=== PATIENT | male | born 1955 ===

== ENCOUNTER 2019-12-26 20:35 | Emergency (ER) | payer BC ==
[2019-12-26 20:56] VITALS: BP 140/81
[2019-12-26] MEDS ORDERED: Benzonatate CAP* 100 MG PO ONE (21:43)
[2019-12-26] MEDS ORDERED: Amoxicillin/Clavulanate TAB* 875 MG PO ONE (21:43)
[2019-12-26] MEDS ORDERED: Albuterol HFA INHALER* 8 gm MDI INH ONE (21:43)
--- NOTE | 2019-12-26 21:50 | UC ---
Respiratory Complaint HPI - HPI Summary HPI Summary: 64-year-old male presents with 2-3 week history of persistent occasionally productive cough for white sputum. Associated with some chest discomfort with cough, mild shortness of breath, and low grade fever as high as 99 F. States he has been having a cough on and off since last August. He has been through 2 courses of antibiotics with the most recent being a course of azithromycin in September 2019. Denies nasal congestion, postnasal drip, ear pain, sore throat, or wheezing. - History of Current Complaint Chief Complaint: UCRespiratory Stated Complaint: COUGH Time Seen by Provider: 12/26/19 21:38 Hx Obtained From: Patient Pain Intensity: 8 - Allergies/Home Medications Allergies/Adverse Reactions: Allergies Allergy/AdvReac Type Severity Reaction Status Date / Time No Known Allergies Allergy Verified 12/26/19 21:48 Home Medications: Home Medications Levothyroxine TAB* [Synthroid 88 MCG TAB*] 88 mcg PO DAILY 12/26/19 [History Confirmed 12/26/19] Rosuvastatin (NF) [Crestor (NF)] 5 g PO DAILY 12/26/19 [History Confirmed ] metFORMIN* [Glucophage 1000 MG TAB *] 1,000 mg PO BID 12/26/19 [History Confirmed 12/26/19] PMH/Surg Hx/FS Hx/Imm Hx Previously Healthy: Yes Endocrine History: Diabetes, Thyroid Disease, Dyslipidemia - Surgical History Surgical History: None - Family History Known Family History: Positive: Non-Contributory - Social History Occupation: Retired Lives: With Family Alcohol Use: Weekly Substance Use Type: None Smoking Status (MU): Never Smoked Tobacco Review of Systems All Other Systems Reviewed And Are Negative: Yes Constitutional: Positive: Fever Eyes: Negative: Drainage, Eye Redness ENT: Negative: Sore Throat, Ear Ache, Nasal Discharge, Sinus Congestion, Sinus Pain/Tenderness Respiratory: Positive: Shortness Of Breath, Cough Cardiovascular: Negative: Palpitations Gastrointestinal: Negative: Abdominal Pain, Vomiting, Diarrhea, Nausea Genitourinary: Positive: Negative Musculoskeletal: Positive: Negative Neurological/Mental Status: Positive: Negative Is Patient Immunocompromised?: No Physical Exam - Summary Physical Exam Summary: GENERAL APPEARANCE: Alert and cooperative obese adult male who appears to be in no acute distress. EYES: Conjunctiva clear. No drainage. EARS: External auditory canals and tympanic membranes clear, hearing grossly intact. NOSE: No nasal congestion or discharge. THROAT: Pharynx normal No tonsilar inflammation, swelling, exudate, or lesions. Uvula midline. NECK: Neck supple, non-tender without lymphadenopathy. CARDIAC: Normal S1 and S2. No S3, S4 or murmurs. Rhythm is regular. There is no peripheral edema, cyanosis or pallor. Extremities are warm and well perfused. Capillary refill is less than 2 seconds. Peripheral pulses intact. LUNGS: Clear to auscultation without rales, rhonchi, wheezing or diminished breath sounds. Dry, non-productive cough. ABDOMEN: Positive bowel sounds. Soft, nondistended, nontender. No guarding or rebound. No masses or hepatosplenomegally. MUSKULOSKELETAL: ROM intact to all extremities. No joint erythema or tenderness. Normal muscular development. Normal gait. SKIN: Skin normal color, texture and turgor with no lesions or eruptions. Triage Information Reviewed: Yes Vital Signs: Initial Vital Signs Temp 98.6 F 12/26/19 20:50 Pulse 92 12/26/19 20:50 Resp 20 12/26/19 20:50 BP 140/81 12/26/19 20:50 Pulse Ox 96 12/26/19 20:50 Vital Signs Reviewed: Yes Respiratory Course/Dx - Course Course Of Treatment: 64-year-old male presents with 2-3 week history of persistent occasionally productive cough for white sputum. Associated with some chest discomfort with cough, mild shortness of breath, and low grade fever as high as 99 F. States he has been having a cough on and off since last August. He has been through 2 courses of antibiotics with the most recent being a course of azithromycin in September 2019. Denies nasal congestion, postnasal drip, ear pain, sore throat, or wheezing. Afebrile. Hypertensive otherwise vital signs stable. Patient had no nasal congestion or discharge, normal TMs, no pharyngeal erythema, no cervical lymphadenopathy, clear bilateral breath sounds, a dry nonproductive cough, and otherwise unremarkable exam. Discussed with the patient that his history and exam were consistent with an acute bronchitis and considering the duration of his symptoms will start him on Augmentin 875 mg twice a day 10 days. He was given the first dose in the clinic. He was also provided with an albuterol inhaler to use 2 puffs every 4-6 hours as needed for shortness of breath, wheezing, or coughing fits as well as Tessalon Perles 1 capsule every 8 hours as needed for cough. He was given a dose of the Tessalon in the clinic as well. He is to follow-up with his primary care provider in one week if symptoms are not improving. Anticipatory guidance and warning symptoms are reviewed with the patient. Verbalizes understanding and agrees with plan of care. - Differential Dx/Diagnosis Provider Diagnosis: Acute bronchitis Discharge ED - Sign-Out/Discharge Documenting (check all that apply): Patient Departure All imaging exams completed and their final reports reviewed: No Studies - Discharge Plan Condition: Stable Disposition: HOME Prescriptions: Amoxicillin/Clavulanate TAB* [Augmentin TAB 875*] 875 mg PO BID #20 tab Benzonatate CAP* [Tessalon 100 MG CAP*] 100 mg PO TID PRN #21 cap PRN Reason: Cough Patient Education Materials: How to Use a Metered-Dose Inhaler (ED), Acute Bronchitis (ED) Referrals: No Primary Care Phys,NOPCP [Primary Care Provider] - Additional Instructions: Your history and exam are consistent with acute bronchitis. Considering the duration of your symptoms we will treat you with a course of antibiotics. Start Augmentin 875 mg 1 tablet twice daily for 10 days. Take with food to avoid upset stomach. Be sure to complete the entire course even if feeling better. Even the first dose in the clinic tonight. Use the albuterol inhaler 2 puffs every 4-6 hours as needed for shortness of breath, wheezing, or coughing fits. Take Tessalon Perles 1 cap every 8 hours as needed for cough. You're given a dose of this in the clinic tonight. Be aware that the cough with bronchitis may persist for 2-3 weeks even after treatment. Get plenty of rest. Drink plenty of fluids. Run a cool mist humidifer in your room at night. Take over the counter acetaminophen (Tylenol) or ibuprofen (Advil, Motrin) according to directions as needed for pain or fever. Follow up with your primary care provider in 7 days if symptoms do not improve. Seek immediate medical attention in the emergency room if you have fever greater than 100.5 F despite taking acetaminophen or ibuprofen, have chest pain , difficulty breathing, or have any worsening of symptoms. - Billing Disposition and Condition Condition: STABLE Disposition: Home
== END 2019-12-26 22:08 | disposition home or self-care (01) ==
LOC: UCEAST 20:35
DX: J20.9 Acute bronchitis, unspecified (principal); E11.9 Type 2 diabetes mellitus without complications; E78.5 Hyperlipidemia, unspecified; E07.9 Disorder of thyroid, unspecified; Z79.890 Hormone replacement therapy; Z79.84 Long term (current) use of oral hypoglycemic drugs; Z79.899 Other long term (current) drug therapy
CPT/HCPCS: 99202; A9270-GY; G0463